=== PATIENT | female | born 1980 | race Caucasian/White ===

== ENCOUNTER 2020-06-04 16:48 | Emergency (ER) | payer OTHER, SELFPAY ==
--- NOTE | 2020-06-04 | CT_ITS ---
EXAMINATION: CT HEAD WITHOUT CONTRAST CT ORBIT's WITHOUT CONTRAST CLINICAL INFORMATION: Trauma COMPARISON: None. TECHNIQUE: Imaging was performed from the skull base to vertex without intravenous administration of contrast. In addition, helical noncontrast CT imaging was acquired through the orbits and source images were reviewed along with axial reconstructions and sagittal and coronal MPRs. [This CT examination was performed using dose optimization techniques as appropriate, variously including the following: *Automated exposure control *Adjustment of mA and/or kV according to patient size (this includes techniques or standardized protocols for targeted exams where dose is matched to indication/reason for exam; i.e. extremities or head) *Use of iterative reconstruction technique] DLP: 730 mGy-cm FINDINGS: HEAD: No intracranial mass, hemorrhage, or midline shift is visualized. The ventricles and sulci are age-appropriate. No extra-axial collections are identified. CT orbits there is a fracture of the mid to posterior right inferior orbital wall. There is no edema or fluid however around the fracture or evident in the right maxillary sinus. No soft tissue swelling seen around the right orbit. This may be an old injury therefore. There is no fracture of the left orbit or the visualized facial bones. There is soft tissue swelling anterior to the left orbital globe. The orbital globes are normal bilaterally. The retrobulbar structures are normal bilaterally. IMPRESSION: 1. Likely old fracture of the inferior floor of the right orbit. Clinically correlate. 2. Preseptal soft tissue swelling around the left orbit. No acute fracture of the left orbit.
[2020-06-04 16:51] VITALS: BP 121/88; PULSE 67; RESP 16; TEMP 36.8; O2SAT 100; BMI 27.8
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
--- NOTE | 2020-06-04 17:53 | PC.NURSE ---
OFF UNIT TO CT SCAN VIA STRETCHER
[2020-06-04 18:01] VITALS: RESP 16
[2020-06-04] MEDS: 0.9 % Sodium Chloride 1,000 ML 999 ML IVCONT (18:01)
[2020-06-04] MEDS: Morphine Sulfate 4 MG/ML CARTRIDGE IVPUSH (18:01)
[2020-06-04] MEDS: LORazepam 2 MG/ML VIAL 0.5 MG IVPUSH (18:02)
[2020-06-04] MEDS: ondansetron HCL 4 MG/2 ML VIAL IVPUSH (18:02)
[2020-06-04 18:31] LABS: MANUAL DIFF FLAG NO
[2020-06-04 18:33] LABS: Basophils Absolute Auto 0.1 X10*3/uL (0.0-0.2); Basophils Percent Auto 0.8 % (0-2); Eosinophils Absolute Auto 0.1 X10*3/uL (0.0-0.4); Eosinophils Percent Auto 0.9 % (0-4); Hematocrit 39.1 % (37-47); Hemoglobin 12.8 g/dl (12.0-16.0); Imm Gran Abs Auto 0.02 X10*3/uL (0.00-0.03); Imm Gran Pct Auto 0.3 % (0.0-0.4); Lymphocytes Absolute Auto 1.2 X10*3/uL (1.2-4.9); Mean Corpuscular HGB Conc 32.7 g/dl (31.0-35.0); Mean Corpuscular Volume 94.7 fL (80-98); Mean Platelet Volume 11.4 fL (9.4-12.3); Monocytes Absolute Auto 0.4 X10*3/uL (0.1-1.2); Monocytes Percent Auto 6.4 % (2-11); Neutrophils Absolute Auto 4.8 X10*3/uL (2.0-8.3); Neutrophils Percent Auto 73.6 % (45-73); Platelet Count 217 X10*3/uL (160-400); Red Blood Count 4.13 X10*6/uL (4.20-5.50); Red Cell Distribution Width 13.3 % (11.0-16.0); White Blood Count 6.6 X10*3/uL (4.8-10.8)
[2020-06-04 18:52] VITALS: BP 114/69; PULSE 80; RESP 14
--- NOTE | 2020-06-04 18:53 | PC.NURSE ---
GOOD EFFECT FROM MEDICATIONS
[2020-06-04 18:58] LABS: Anion Gap 12 (12-20); Blood Urea Nitrogen 17 mg/dL (9-16); Calcium 9.4 mg/dL (8.4-10.2); Carbon Dioxide 27 mmol/L (22-29); Chloride 104 mmol/L (96-108); Creatinine Clr Calc Pharmacy 89.8; Estimated Glomerular Filt Rate > 60; Glucose Random 102 mg/dL (60-115); Potassium 3.9 mmol/l (3.3-5.1); Sodium 139 mmol/L (135-145)
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
--- NOTE | 2020-06-04 20:06 | PC.NURSE ---
PAY[employer] ASSOCIATE at bedside with pt discussing plan to consult ophthalmology. Pt requesting food/drink, given a sandwich and applie juice.
[2020-06-04 20:07] VITALS: BP 95/50; PULSE 65; RESP 16; O2SAT 100
--- NOTE | 2020-06-04 20:46 | PC.NURSE ---
Pharm called for eyedrops.
--- NOTE | 2020-06-04 21:43 | PC.NURSE ---
Pt requesting discharge. This RN calling pharmacy again inquiring about the eyedrops. Per pharm, one of the eyedrops is not available. [employer] aware. Pt aware of plan, awaiting eyedrops, anxious for DC, states she has a ride and needs to leave.
[2020-06-04] MEDS: prednisoLONE Acetate 1 % Oph Susp 5 ML DRPBTL 1 DROP EYE-LEFT (21:48)
[2020-06-04] MEDS: Atropine Sulfate 1 % Ophth Sol 2 ML BOTTLE 1 DROP EYE-LEFT (22:02)
[2020-06-04] MEDS: Erythromycin Base 0.5% Oph Oin 1 GM TUBE 1 CM EYE-LEFT (22:05)
--- NOTE | 2020-06-04 22:08 | PC.NURSE ---
Pt medicated with eye drops per EMAR.
[2020-06-04 22:12] VITALS: BP 100/74; PULSE 64; RESP 16
== END 2020-06-04 22:14 | disposition home or self-care (01) ==
PROVIDERS: Nurse Practitioner Family; Emergency Provider Emergency Medicine
DX: S06.0X0A Concussion without loss of consciousness, initial encounter (principal); S05.02XA Injury of conjunctiva and corneal abrasion without foreign body, left eye, initial encounter; H21.02 Hyphema, left eye; H57.13 Ocular pain, bilateral; M54.2 Cervicalgia; G44.309 Post-traumatic headache, unspecified, not intractable; Y04.8XXA Assault by other bodily force, initial encounter; Y93.9 Activity, unspecified; Y92.9 Unspecified place or not applicable; F17.200 Nicotine dependence, unspecified, uncomplicated; Z71.6 Tobacco abuse counseling
CPT/HCPCS: 36415; 70450; 70480; 80048; 85025; 96361; 96374; 96375; 99284; J2060; J2270; J2405